=== PATIENT | female | born 1975 | race Caucasian/White ===

== ENCOUNTER → 2017-04-21 15:21 | Outpatient (CLI) | payer OTHER, SELFPAY ==
--- NOTE | 2017-04-21 15:25 | RAD_ITS ---
STUDY: X-RAY - LUMBAR SPINE REASON FOR EXAM: Female, 42 years old. Back pain TECHNIQUE: 2 view(s) of the lumbar spine were obtained. COMPARISON: None FINDINGS: Normal lumbar lordosis. There is a dextroscoliosis of the lumbar spine. There is a normal alignment of the vertebrae. Large amount of stool in the rectal vault can suggest constipation. Spinal fixation hardware at L4-5. There is endplate spondylosis of the vertebral body. Laminectomy changes at L4-5. Intervertebral fusion disc in place at L4-5. The soft tissue structures are unremarkable. RAD/Lumbar Spine 2 or 3 Views IMPRESSION: There is a dextroscoliosis of the lumbar spine. Constipation Spinal fusion at L4-5. Electronically Signed: Andrés Freedman MD at 16:05 EDT , Service support ,
== END ==
PROVIDERS: Family Provider Internal Medicine; PCP Internal Medicine; Visit Provider Orthopaedic Surgery
DX: M54.5 Low back pain (principal)
CPT/HCPCS: 72100

== ENCOUNTER → 2017-08-05 14:03 | Outpatient (CLI) | payer OTHER, SELFPAY ==
[2017-08-11 10:50] LABS: HPV Reflexed? NOT INDICATED
== END ==
PROVIDERS: Visit Provider Obstetrics & Gynecology
DX: Z12.4 Encounter for screening for malignant neoplasm of cervix (principal)
CPT/HCPCS: 88175; G0145

== ENCOUNTER 2017-08-19 06:59 | Day surgery (SDC) | payer OTHER, SELFPAY ==
[2017-08-14 13:16] LABS: Hematocrit 42.2 % (37-47); Hemoglobin 14.4 g/dl (12.0-15.0); Mean Corp Hgb Conc 34.1 g/gl (32-36); Mean Corpuscular Hgb 30.3 pg (27.0-32.0); Mean Corpuscular Volume 88.8 fL (81-99); Mean Platelet Vol. 10.7 fl (6.2-12.0); Platelet Count 218 K/mm3 (150-450); RBC Distribution Width SD 38.6 fl (35.1-43.9); Red Blood Count 4.75 M/mm3 (4.2-5.4); White Blood Count 4.6 K/mm3 (4.4-11.0)
[2017-08-14 13:17] LABS: Scan Indicated on CBC? Y/N NO
[2017-08-14 13:27] LABS: Partial Thromboplast Time 26.4 Seconds (24.1-36.2); Prothrombin Time (Protime)PT. 13.5 SECONDS (11.7-14.9)
[2017-08-14 13:46] LABS: AST(SGOT) 22 U/L (15-37); Alanine Aminotransfer ALT/SGPT 23 U/L (13-56); Albumin, Serum 3.6 g/dL (3.2-5.0); Alkaline Phosphatase 51 U/L (45-117); Bilirubin, Direct 0.15 mg/dL (0.00-0.30); Globulin 3.6 g/dL (2.2-4.2); Protein, Total 7.2 g/dL (6.4-8.2); Thyroid Stim Hormone (TSH) 2.87 uIU/mL (0.358-3.74)
[2017-08-19 07:15] LABS: Internal QC Validated? YES +Cl - CLEAR BKGD; Pregnancy, Urine Negative Negative
[2017-08-19 07:21] VITALS: BP 108/48; PULSE 61; RESP 16; TEMP 36.9; O2SAT 99; BMI 24.1
[2017-08-19] MEDS: Cefazolin 2 GM in 0.9% Normal Saline 100 ML IV (08:25)
--- NOTE | 2017-08-19 08:30 | OP.PCM_ITS ---
Report of Operation Date of Procedure: 08/19/17 Pre-Operative Diagnosis: left shoulder anterior instability/ bankart tear Post-Operative Diagnosis: same Surgery/Procedure Performed:: Left shoulder arthroscopy, anterior capsulorrhaphy Type of Anesthesia:: General/Regional Anesthesiologist: Breezy Matos Estimated Blood Loss (mL): 0cc Fluids Replaced: 1200cc LR Description of Procedure: Preoperative note Patient is a 42-year-old female with recurrent left shoulder instability. Patient has failed conservative treatment is unstable with ADLs unable to perform her work activities as well. Patient elected to proceed with left shoulder arthroscopy repair of Bankart capsulorrhaphy repair is indicated. Risks benefits and alternatives surgery discussed with patient. Risks including but not limited to blood loss, blood clot, infection, neurovascular injury, failure procedure, loss of life and loss of limb. Patient is aware would like proceed with left shoulder arthroscopy repair is indicated. Operative note Patient seen and examined preoperative holding area. Left shoulder was marked. Patient is brought to the operating room placed supine on the operating table. Signing, anesthesia, antibiotics were administered. Left arm was prepped and draped in usual sterile fashion after we placed her in lateral positioning with the beanbag and axillary roll was placed on her right axilla. All bony prominence is well-padded SCDs placed on her bilateral lower extremities. We marked out her incisions for our portal placement. Patient was placed in a lateral arm distraction with 10 pounds under the arm and 5 pounds for distal distraction. We then insufflated the glenohumeral joint with 60 cc of normal saline and had good backflow. Timeout was performed prior to this. We then used an 11 blade to create our posterior portal. We then were able to visualize the glenohumeral joint. She had absolutely no labrum anterior was scarred and on the inferior glenoid. We then created our 2 portals anterior one anterior superior 1 tear anterior inferior. Her subscap was intact her biceps intact her rotator cuff is intact there is no loose bodies in the inferior recess. Please note that we also did a preop evaluation under anesthesia. She was unstable anterior she had no sulcus sign and she was not unstable posterior. After creating our 2 anterior portals were then used a freer elevator to gently remove the scarred and labrum and capsule off of the glenoid. After we felt that we had good mobility we then used a shaver to then shave the bone is involved in this to him and also the labrum and capsule to instill further healing. Please note the patient had a small bony lesion that was resected at the most inferior aspect of the Bankart tear. We then used the Arthrex suture tack at the most inferior aspect about the 530 position. We then grabbed the inferior capsule as well as labrum and brought that up to tighten of her inferior glenohumeral ligament. We placed horizontal mattress at the 530 and then at the 430 as well. We had a good bump as well as good capsular tightness and the humeral head did move posterior after these 2 anchors were placed. We then placed a push lock in the 3 o'clock position 330 position for further bumper to prevent further subluxation dislocation. We then moved our camera to this anterior superior cannula and we had good glenohumeral joint alignment at the 50 yard line. We then irrigated the end shoulder with copious nonsterile saline the portals were closed with interrupted 4-0 nylon sterile dressings and a brace and external rotation was placed on the left upper extremity. Patient was transferred to recovery room in stable condition there is no comp occasions. Patient tolerated procedure well there are no comp occasions. Postoperative note Hospital pharmacy has prescriptions as Call with increased pain numbness tingling further issues arise Sling at all times except for showering or doing pendulums Follow-up in 2 weeks for suture removal and initiation of physical therapy This note was generated with [employer] dictation software. It may contain incorrect words, spelling, and punctuation that were not noted in checking the note before signing.
--- NOTE | 2017-08-19 08:30 | DCINST_ITS ---
Discharge Diet: No Restrictions - remove dressings in 4 days and apply bandaids to incision sites, may shower and get incision wet after 4 days, pendulums 3 times daily as tolerated, call with concerns, follow up in 2 weeks Discharge Activity: May Not Drive May shower in (days): 1 Ice area for (Minutes): 20 - Every hour while awake. Weight Bearing Status: Weight bearing as tolerated Keep extremity elevated above heart level: Operative Extremity Call your doctor if your incision/area has: Continuous Slow Oozing, Sudden Increased Bleeding, Increased Pain/ Swelling, Increased Redness, Foul Smelling Discharge Call your doctor if you observe: Fever of 101 or Higher, Coldness, Increased Pain, Numbness or Tingling, Change in Color, Calf discomfort Allergies/Adverse Reactions: Allergies acetaminophen [From Vicodin] Allergy (Verified 08/19/17 07:20) Nausea/Vom/Diarrhea amoxicillin trihydrate [From Augmentin] Allergy (Verified 08/13/17 11:26) Hives clarithromycin [From Biaxin] Allergy (Verified 08/13/17 11:26) Hives hydrocodone [From Vicodin] Allergy (Verified 08/19/17 07:20) Nausea/Vom/Diarrhea Penicillins Allergy (Verified 08/13/17 11:26) Hives potassium clavulanate [From Augmentin] Allergy (Verified 08/13/17 11:26) Hives Sulfa (Sulfonamide Antibiotics) Allergy (Verified 08/13/17 11:26) Hives sulfamethoxazole [From Bactrim] Allergy (Verified 08/13/17 11:26) Hives trimethoprim [From Bactrim] Allergy (Verified 08/13/17 11:26) Hives vancomycin Allergy (Verified 08/13/17 11:26) Hives Medications to take at Discharge Levothyroxine [Synthroid] 450 mcg PO ANDERSON 11/06/15 Drospir/Eth Estra/Levomefol Ca [Beyaz 28 Tablet] 1 each PO DAILY 08/13/17 Escitalopram Oxalate [Lexapro] 10 mg PO DAILY 08/13/17 Fish Oil/Dha/Epa [Fish Oil 1,200 mg Fish Oil] 1 each PO DAILY 08/13/17 Multivitamin [Multiple Vitamins] 1 each PO DAILY 08/13/17 Ondansetron [Zofran] 8 mg PO Q8H PRN PRN #20 tab 08/19/17 Oxycodone HCl/Acetaminophen [Percocet 5/325] 1 - 2 tablet PO Q6H PRN PRN 5 Days #56 tablet 08/19/17 Zolpidem Tartrate [Ambien (Generic)] 5 mg PO QHS PRN PRN #14 tablet 08/19/17 The following prescriptions were given: Oxycodone HCl/Acetaminophen [Percocet 5/325] 1 - 2 tablet PO Q6H PRN PRN 5 Days #56 tablet PRN Reason: Pain Ondansetron [Zofran] 8 mg PO Q8H PRN PRN #20 tab PRN Reason: Nausea Zolpidem Tartrate [Ambien (Generic)] 5 mg PO QHS PRN PRN #14 tablet PRN Reason: Insomnia Primary Care Physician: Caroline Fisher DO [Primary Care Provider] - Test Results: Test results from this visit will be discussed in further detail at your follow- up appointment, if applicable. Please Follow Up With: Cherie Stanley DO - [phone]
[2017-08-19] MEDS: Mupirocin Ointment 22gm Tube 1 APPLIC (10:18)
[2017-08-19 10:41] VITALS: BP 108/48; BP 114/65; PULSE 86; RESP 16; TEMP 36.4; O2SAT 96
[2017-08-19 10:45] VITALS: BP 106/67; BP 108/48; PULSE 69; RESP 16; O2SAT 95
[2017-08-19 11:02] VITALS: BP 106/69; BP 108/48; PULSE 68; RESP 16; TEMP 36.3; O2SAT 97
[2017-08-19] MEDS: oxyCODONE 5 MG Tablet 10 MG PO (11:26)
[2017-08-19 11:48] VITALS: BP 108/48; BP 109/59; PULSE 63; RESP 16; TEMP 36.4; O2SAT 99
== END 2017-08-19 11:49 | disposition home or self-care (01) ==
LOC: SDC 07:01 → AC 07:01
PROVIDERS: Family Provider Internal Medicine; PCP Internal Medicine; Visit Provider Orthopaedic Surgery
PROC: (CPT 29806; principal; 2017-08-19 08:10)
DX: M25.312 Other instability, left shoulder (principal); F41.9 Anxiety disorder, unspecified; F32.9 Major depressive disorder, single episode, unspecified; Z79.899 Other long term (current) drug therapy; Z98.1 Arthrodesis status; E03.9 Hypothyroidism, unspecified
CPT/HCPCS: 01630; 29806; 64415; 36415; 80076; 81025; 84443; 85027; 85610; 85730; J7120; J2405

== ENCOUNTER 2017-10-02 12:15 | Outpatient (RCR) | payer OTHER, SELFPAY ==
--- NOTE | 2017-03-26 16:35 | MASS.EVAL ---
Massage Therapy Evaluation: Evaluation Date: 03/18/2017 The patient is a 42 year old female who was referred to [facility] by Dr. Fisher with a diagnosis of disc degeneration. She presents today with the symptoms of muscle soreness and nerve pain. SHe denies any numbness or tingling in her lower extremities. Her history is significant for a spinal fusion of L4-5 in April of 2016. She also has a history of subluxation in her left shoulder due to a labral tear. Her medications include Levothyroxine, Lexapro, Beyaz, multivitamin and fish oil Her goals for treatment are stress reduction, ruduced muscle tension and relaxation. Her first treatment consisted of a one hour moderate to deep tissue massage to the full body. I found moderate tension through the upper body with knots in the uppertraps and rhomboids. There were no major areas of concern. The patient relaxed well. Francisco is an excellent candidate for massage. We have had much success treating her in the past. I plan to see her one time per month for a total of ten one hour sessions of massage. Analisa Nuñez LMT
--- NOTE | 2017-03-26 16:49 | MASS.EVAL_ITS ---
Massage Therapy Evaluation: Evaluation Date: 03/18/2017 The patient is a 42 year old female who was referred to [facility] by Dr. Fisher with a diagnosis of disc degeneration. She presents today with the symptoms of muscle soreness and nerve pain. SHe denies any numbness or tingling in her lower extremities. Her history is significant for a spinal fusion of L4- 5 in April of 2016. She also has a history of subluxation in her left shoulder due to a labral tear. Her medications include Levothyroxine, Lexapro, Beyaz, multivitamin and fish oil Her goals for treatment are stress reduction, ruduced muscle tension and relaxation. Her first treatment consisted of a one hour moderate to deep tissue massage to the full body. I found moderate tension through the upper body with knots in the uppertraps and rhomboids. There were no major areas of concern. The patient relaxed well. Francisco is an excellent candidate for massage. We have had much success treating her in the past. I plan to see her one time per month for a total of ten one hour sessions of massage. Analisa Nuñez LMT
--- NOTE | 2018-01-28 12:57 | MASS.DISCH ---
Massage Therapy Discharge Summary: Initial Evaluation: 03/18/2017 Diagnosis: Disc Degeneration No. of Visits: Date of last visit: 10/02/2017 The patient is no longer covered by [facility] insurance. This patient is being discharged from our care at the [facility]. Thank you, Analisa Nuñez LMT
--- NOTE | 2018-01-28 12:58 | DS.PCM_ITS ---
Massage Therapy Discharge Summary: Initial Evaluation: 03/18/2017 Diagnosis: Disc Degeneration No. of Visits: Date of last visit: 10/02/2017 The patient is no longer covered by [facility] insurance. This patient is being discharged from our care at the [facility]. Thank you, Analisa Nuñez LMT
== END 2017-10-02 19:00 | disposition home or self-care (01) ==
LOC: MASS 12:15
PROVIDERS: Family Provider Internal Medicine; PCP Internal Medicine; Visit Provider Internal Medicine
DX: M51.36 Other intervertebral disc degeneration, lumbar region (principal)
CPT/HCPCS: 97124

== ENCOUNTER → 2017-10-06 11:57 | Outpatient (CLI) | payer OTHER, SELFPAY | PROVIDERS: Family Provider Internal Medicine; PCP Internal Medicine; Visit Provider Obstetrics & Gynecology | DX: Z12.31 Encounter for screening mammogram for malignant neoplasm of breast (principal) | CPT/HCPCS: 77063; 77067 ==

== ENCOUNTER → 2017-10-08 14:19 | Outpatient (CLI) | payer OTHER, SELFPAY ==
[2017-10-09 09:22] LABS: Rubella IgG 46.4 IU/mL
[2017-10-12 11:19] LABS: Hep B Surface Antibodies Reactive (.); Mumps Antibody,IgG < 9.0 AU/mL (Immune >10.9); V-Zoster IgG (Immunity) 410 index (Immune >165)
== END ==
PROVIDERS: Family Provider Internal Medicine; PCP Internal Medicine; Visit Provider Internal Medicine
DX: Z11.59 Encounter for screening for other viral diseases (principal); Z11.9 Encounter for screening for infectious and parasitic diseases, unspecified
CPT/HCPCS: 36415; 86706; 86735; 86762; 86787

== ENCOUNTER 2017-10-29 10:00 | Outpatient (RCR) | payer OTHER, SELFPAY ==
--- NOTE | 2017-09-14 09:52 | HP.PTEVAL_ITS ---
Patient's Visit Information CHRIS RODRIGUEZ is a 42 year old F referred to Physical Therapy by Cherie Stanley DO with a diagnosis of L shoulder labral repair and bankart repair. Date of Evaluation: 09/09/17 Physical Therapist: Bernardino Silver - Visit Plan Frequency: 2x /Week Duration: 8-12 weeks Plan: Cont. per protocol. - Subjective Subjective: Pt. is here today for her initial evaluation after having a L shoulder labral repair and bankart repair. DOS: 08/19/17. Pt. reports initially hurting her shoulder earlier this year. Pt. was lifting and felt her arm give way. She was having some light symptoms, but was lifting a kettle oglesby over her head when her arm dislocated. Pt. went through conservative care, but ultimately had to have surgery to correct. Pt. denies N/T. Pt. is wearing her sling as indicated. Pt. has not been doing an exercises to this point. 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 Pt. is sleeping in her bed with sling on without issues. Pt. is hopeful to increase ROM and strength allowing her to get back to all recreational and work activities withotu limitations. - Pain L shoulder Pain Intensity (Out of 10): 0 Pain Intensity Range: 0, 4 - Objective POSTURE: Pt. has equal shoulder hieghts. Pt. does keep L UE in gaurded positioning. Normal scapular and head positioning. PALPATION: Pt. has mild tenderness at subacromial space and coracoid process. Pt. has normal healing incsisions. No signs of infection. No redness. NEUROLOGICAL: Pt. has normal sensation throughout; 2+ biceps and triceps bilaterally. ROM: R shoulder- full no limitations. L shoulder- PROM- flexion 90deg, scaption 90deg, ER at side 20deg. L elbow- full without limations. Pt. is doing very well. MMT- R shoulder- 5/5 throughout; LUE- not tested this date. Pt. has active elbow flexion/ext, active scap retracion and active shoulder shrugs. - Goals Goal 1:: Pt. to be I with HEP. Goal Time Frame: 4-6 Weeks Goal 2:: Pt. to have increased PROM of L shoulder to full without increase in symptoms Goal Time Frame: 8-12 Weeks Goal 3:: Pt. to have full AROM of L shoulder without increase in symptoms. Goal Time Frame: 8-12 Weeks Goal 4:: Pt. to have increased L shoulder strength to 4+/5 without increase in symptoms. Goal Time Frame: 12-16 Weeks Goal 5:: Pt. to sleep throughout the night without limitations or increase in symptoms. Goal Time Frame: 4-6 Weeks - Rehabilitation Potential Physical Therapy Diagnosis: Pt. has signs and symptoms consistent with L shoulder labral repair and bankart repair. Pt. has subsequent hypomobility, weakness, and pain. Pt. would benefit from PT to progress ROM as indicated in her protocol. Eventually progressing to strengthening allowing for increased return to work and recreational activities. Rehabilitation Potential: Excellent - Anticipated Interventions Patient/Client Instruction: Educate patient on: Condition, Plan of Care, Risk Factors, Benefits of Fitness Program For the Purpose of:: To improve health and function, To foster healthy habits, To facilitate caregiver knowledge, To improve self management, To prevent re- injury, To improve ability to perform tasks related to life management, To improve tolerance to ADL's Therapeutic Exercise to Include: Strength training, Power training, Postural training, Flexibilty training, Passive ROM, Active ROM, Scapular Strength/ Stabilization For the Purpose of:: To decrease pain, To decrease swelling/inflammation, To increase ROM, To improve nutrient delivery to tissue, To increase oxygenation perfusion, To improve muscle performance and motor function, To improve performance and independence with ADL's, To improve health of tissue, To decrease soft tissue restriction, To increase flexibility/ROM Manual Therapy Techniques to Include: Mobilization, Passive ROM, Soft tissue mobilization For the Purpose of:: To decrease pain, To decrease swelling/inflammation, To increase ROM, To improve nutrient delivery to tissue, To improve health of tissue, To decrease soft tissue restriction, To increase flexibility/ROM IF ES: Yes Other electric stimulation: Yes Cryotherapy (ice pack, ice massage): Yes Thermo therapy (hot pack): Yes For the Purpose of:: To decrease pain, To decrease swelling/inflammation, To increase ROM, To improve nutrient delivery to tissue Thank you for the opportunity to evaluate your patient. For Medicare and Medicare HMO plans, please review the plan of care and approve it. It will need to be FAXED BACK to us at [phone] for Medicare purposes. Please let me know if there are questions or concerns regarding this plan of care. Physician Signature: Date:
--- NOTE | 2017-10-02 13:50 | HP.PTREVAL ---
Cherie Stanley, DO, It has been my pleasure to treat CHRIS RODRIGUEZ over the last 9 visits for L shoulder labral repair and bankart repair. Please see the progress note below for an update on the physical therapy plan of care! Subjective: Pt. reports going to physician and was release from sling. Pt. arrives without sling this date. Pt. reports no pain. Pt. is able to sleep without issues, denies N/T as well. Objective/Function: AROM- flexion 140deg, abd 130deg. PROM- flexion 155deg, abd 155deg, ER at side 30deg, ER at 60deg 20deg, did not test ER at 90deg. Pt. is tight as expected. Cont. to no over stress into PROM, but progress per protocol. Able to start to complete scapular PREs, bicep/tricep strengthening, and light CKC exercises. Pt. is progressing as expected, but would benefit from continued PT to guide her through this next phase of her shoulder rehab with progression into strengthening and end range as protocol allows. Plan Plan: Requesting fruther PT visits to progress ROM and strength per protocol. Goals Goal 1:: Pt. to be I with HEP. Goal Time Frame: 4-6 Weeks Goal Progress: Progressing Goal 2:: Pt. to have increased PROM of L shoulder to full without increase in symptoms Goal Time Frame: 8-12 Weeks Goal Progress: Progressing Goal 3:: Pt. to have full AROM of L shoulder without increase in symptoms. Goal Time Frame: 8-12 Weeks Goal Progress: Progressing Goal 4:: Pt. to have increased L shoulder strength to 4+/5 without increase in symptoms. Goal Time Frame: 12-16 Weeks Goal Progress: Progressing Goal 5:: Pt. to sleep throughout the night without limitations or increase in symptoms. Goal Time Frame: 4-6 Weeks Goal Progress: Goal Met Anticipated Interventions Patient/Client Instruction: Educate patient on: Condition, Plan of Care, Risk Factors, Benefits of Fitness Program For the Purpose of:: To improve health and function, To foster healthy habits, To facilitate caregiver knowledge, To improve self management, To prevent re-injury, To improve ability to perform tasks related to life management, To improve tolerance to ADL's Therapeutic Exercise to Include: Strength training, Power training, Postural training, Flexibilty training, Passive ROM, Active ROM, Scapular Strength/Stabilization For the Purpose of:: To decrease pain, To decrease swelling/inflammation, To increase ROM, To improve nutrient delivery to tissue, To increase oxygenation perfusion, To improve muscle performance and motor function, To improve performance and independence with ADL's, To improve health of tissue, To decrease soft tissue restriction, To increase flexibility/ROM Manual Therapy Techniques to Include: Mobilization, Passive ROM, Soft tissue mobilization For the Purpose of:: To decrease pain, To decrease swelling/inflammation, To increase ROM, To improve nutrient delivery to tissue, To improve health of tissue, To decrease soft tissue restriction, To increase flexibility/ROM IF ES: Yes Other electric stimulation: Yes Cryotherapy (ice pack, ice massage): Yes Thermo therapy (hot pack): Yes For the Purpose of:: To decrease pain, To decrease swelling/inflammation, To increase ROM, To improve nutrient delivery to tissue Please do not hesitate to contact me at [phone] by phone or if you have questions or concerns regarding this new plan of care! Sincerely, Bernardino Silver
--- NOTE | 2017-11-09 12:46 | HP.PTDCSUM_ITS ---
HP - PT D/C Summary It has been my pleasure to treat CHRIS RODRIGUEZ under orders from Cherie Stanley DO, for the diagnosis of L shoulder labral repair and bankart repair for a total of 20 visit(s). Discharge Date: 10/29/17 Please see the following information for a summary of their discharge status. - Subjective Subjective: Pt. reports I am 95% better. Pt. is back to most strengthening activites. She reports having slight end range tightness with flexion and abuction, but has improved. Pt. report sno pain with all daily acyivities. - Pain L shoulder Pain Intensity (Out of 10): 0 - Overall Improvement % Improvement: 95 - Objective Objective/Function: L shoulder AROM- flexion 170deg, abd 171deg, functional ER C5, fucntional IR L2. PROM- flexion 175deg, abd 175deg, ER at 90deg- 90deg, IR at 45deg- 60deg. No pain noted with testing this date. MMT- L shoulder- flexion 4+/5, abd 4+/5, ER 4+/5, IR 5-/5. Pt. is no longer having pain with all ADls or recreational activies. She is independent with her current HEP. Pt. is in no longer need of PT at this point in time. - Goals Goal 1:: Pt. to be I with HEP. Goal Progress: Goal Met Goal 2:: Pt. to have increased PROM of L shoulder to full without increase in symptoms Goal Progress: Goal Met Goal 3:: Pt. to have full AROM of L shoulder without increase in symptoms. Goal Progress: Goal Met Goal 4:: Pt. to have increased L shoulder strength to 4+/5 without increase in symptoms. Goal Progress: Goal Met Goal 5:: Pt. to sleep throughout the night without limitations or increase in symptoms. Goal Progress: Goal Met - Plan Plan: Pt. to be DC to HEP at this point in time. - D/C Information Discharge Comments: Pt. was treated for her L shoulder bankart repair. Pt. progressed as expected with ROM and PT. Pt. is to a point where she can complete all exercises indepdently. Pt. is moving to [place]. She progressed as expected and is I with HEP. Pt. will be DC to HEP at this point in time. If there are questions or concerns regarding this patient's physical therapy, please feel free to call me at [phone]. Thank you for the referral of this patient. Sincerely, Bernardino Silver
== END 2017-10-29 19:00 | disposition home or self-care (01) ==
LOC: PT 10:00
PROVIDERS: Family Provider Internal Medicine; PCP Internal Medicine; Visit Provider Orthopaedic Surgery
DX: Z98.890 Other specified postprocedural states (principal)
CPT/HCPCS: 97110; 97140; 97161; 97530